=== PATIENT | male | born 1985 | race Caucasian/White ===

== ENCOUNTER 2017-01-20 05:08 | Observation (INO) | payer OTHER ==
[~2017-01-20] VITALS: Ht 167.6 cm; Wt 97.9 kg
[2017-01-20] MEDS ORDERED: SODIUM CHLORIDE 0.9% 1,000 ML IV ONE (05:31)
[2017-01-20] MEDS ORDERED: ONDANSETRON 2MG/ML, 2ML ONE (05:59)
[2017-01-20] MEDS ORDERED: ASPIRIN 81 MG TABLET CHEW ONE (05:59)
[2017-01-20] MEDS ORDERED: SODIUM CHLORIDE FLUSH 10ML SYR IVF ONE (06:00)
[2017-01-20] MEDS ORDERED: ASPIRIN 81 MG TABLET CHEW PO ONE (06:00)
[2017-01-20] MEDS ORDERED: SODIUM CHLORIDE 0.9% 1,000ML IVBOLUS ONE (06:00)
[2017-01-20] MEDS ORDERED: ONDANSETRON 2MG/ML, 2ML IVPush ONE (06:00)
[2017-01-20] MEDS ORDERED: NITROGLYCERIN SINGLE TAB 0.4 MG SL PRN (06:00)
[2017-01-20] MEDS ORDERED: LORazepam 2 MG/ML, 1ML IVPush ONE (06:00)
[2017-01-20] MEDS ORDERED: LORazepam 2 MG/ML, 1ML ONE (06:00)
[2017-01-20 06:12] LABS: HEMATOCRIT 52.3 % (39.2-51.8); HEMOGLOBIN 17.6 g/dL (13.7-18.0); WHITE BLOOD COUNT 11.5 x10^3/uL (3.4-10)
[2017-01-20 06:22] LABS: ASPARTATE AMINO TRANSFERASE 181 U/L (15-37); BLOOD UREA NITROGEN 25 mg/dL (7-18)
[2017-01-20 06:25] LABS: ACETAMINOPHEN < 2 mcg/mL (10-30)
[2017-01-20 06:26] LABS: IS PT STATUS REG ER OR PRE ER? YES
[2017-01-20 07:49] LABS: DAU SCREEN DISCLAIMER
[2017-01-20] MEDS ORDERED: SODIUM CHLORIDE FLUSH 10ML SYR IVF PRN (09:00)
[2017-01-20] MEDS ORDERED: BISACODYL 10 MG SUPP PR PRN (10:30)
[2017-01-20] MEDS ORDERED: ACETAMINOPHEN 325 MG TABLET PO PRN (10:30)
[2017-01-20] MEDS ORDERED: ONDANSETRON 2MG/ML, 2ML IVPush PRN (10:30)
[2017-01-20] MEDS ORDERED: hydrALAzine 20 MG/ML, 1ML IVPush PRN (10:30)
[2017-01-20] MEDS ORDERED: ONDANSETRON ODT 4 MG PO PRN (10:30)
[2017-01-20] MEDS ORDERED: POLYETHYLENE GLYCOL 17 GM PACKET PO PRN (10:30)
[2017-01-20] MEDS ORDERED: DOCUSATE 100 MG CAPSULE PO PRN (10:30)
[2017-01-20 10:58] LABS: IS PT STATUS REG ER OR PRE ER? YES
[2017-01-20 11:42] VITALS: BP 133/77
[2017-01-20] MEDS: ENOXAPARIN 40 MG/0.4 ML SQ SCH (12:54)
[2017-01-20] MEDS: NICOTINE 14MG/24 HR PATCH.TD24 TD SCH (12:54)
[2017-01-20] MEDS ORDERED: POTASSIUM CHLORIDE 20 MEQ, MAGNESIUM SULFATE 2 GM, THIAMINE 100 MG, MVI ADULT 10 ML in ... IV SCH (13:00)
[2017-01-20 13:49] VITALS: BP 113/61
[2017-01-20 16:24] LABS: IS PT STATUS REG ER OR PRE ER? NO
[2017-01-20 18:44] VITALS: BP 109/70
[2017-01-20] MEDS: FAMOTIDINE 20 MG TABLET PO SCH (20:06)
[2017-01-20] MEDS: ZOLPIDEM 5MG TABLET PO PRN (20:06)
[2017-01-21 00:31] VITALS: BP 112/71
[2017-01-21 06:09] LABS: HEMATOCRIT 43.3 % (39.2-51.8); HEMOGLOBIN 14.4 g/dL (13.7-18.0); WHITE BLOOD COUNT 4.9 x10^3/uL (3.4-10)
[2017-01-21 06:16] LABS: BLOOD UREA NITROGEN 15 mg/dL (7-18)
[2017-01-21 08:34] VITALS: BP 125/72
[2017-01-21] MEDS: FAMOTIDINE 20 MG TABLET PO SCH ×2 (08:46→20:30)
[2017-01-21] MEDS: NICOTINE 14MG/24 HR PATCH.TD24 TD SCH (12:33)
[2017-01-21] MEDS: ENOXAPARIN 40 MG/0.4 ML SQ SCH (12:36)
[2017-01-21 12:42] VITALS: BP 132/86
[2017-01-21] MEDS: POTASSIUM CHLORIDE 20 MEQ, MAGNESIUM SULFATE 2 GM, THIAMINE 100 MG, MVI ADULT 10 ML in ... IV SCH (13:57)
[2017-01-21 18:34] VITALS: BP 130/77
[2017-01-21] MEDS ORDERED: ONDANSETRON 2MG/ML, 2ML IVPush PRN (20:00)
[2017-01-21] MEDS ORDERED: DOCUSATE 100 MG CAPSULE PO PRN (20:00)
[2017-01-21] MEDS ORDERED: POLYETHYLENE GLYCOL 17 GM PACKET PO PRN (20:00)
[2017-01-21] MEDS ORDERED: hydrALAzine 20 MG/ML, 1ML IVPush PRN (20:00)
[2017-01-21] MEDS ORDERED: BISACODYL 10 MG SUPP PR PRN (20:00)
[2017-01-21] MEDS ORDERED: ONDANSETRON ODT 4 MG PO PRN (20:00)
[2017-01-21] MEDS ORDERED: ACETAMINOPHEN 325 MG TABLET PO PRN (20:00)
[2017-01-21] MEDS: ZOLPIDEM 5MG TABLET PO PRN (20:30)
[2017-01-22 01:05] VITALS: BP 103/64
[2017-01-22 05:45] LABS: BLOOD UREA NITROGEN 11 mg/dL (7-18)
[2017-01-22 06:45] VITALS: BP 119/72
[2017-01-22] MEDS: FAMOTIDINE 20 MG TABLET PO SCH ×2 (08:51→20:26)
[2017-01-22] MEDS: ENOXAPARIN 40 MG/0.4 ML SQ SCH (12:00)
[2017-01-22 12:36] VITALS: BP 111/69
[2017-01-22] MEDS: NICOTINE 14MG/24 HR PATCH.TD24 TD SCH (13:27)
[2017-01-22] MEDS: POTASSIUM CHLORIDE 20 MEQ, MAGNESIUM SULFATE 2 GM, THIAMINE 100 MG, MVI ADULT 10 ML in ... IV SCH ×2 (14:50→19:38)
[2017-01-22 19:15] VITALS: BP 126/75
[2017-01-22] MEDS: ZOLPIDEM 5MG TABLET PO PRN (20:26)
[2017-01-23 01:57] VITALS: BP 120/68
[2017-01-23 06:57] VITALS: BP 130/71
[2017-01-23] MEDS: FAMOTIDINE 20 MG TABLET PO SCH ×2 (08:34→20:30)
[2017-01-23] MEDS: POTASSIUM CHLORIDE 20 MEQ, MAGNESIUM SULFATE 2 GM, THIAMINE 100 MG, MVI ADULT 10 ML in ... IV SCH ×2 (10:18→19:11)
[2017-01-23] MEDS: NICOTINE 14MG/24 HR PATCH.TD24 TD SCH (11:29)
[2017-01-23] MEDS: ENOXAPARIN 40 MG/0.4 ML SQ SCH (11:29)
[2017-01-23 12:15] VITALS: BP 116/71
[2017-01-23 20:00] VITALS: BP 118/74
[2017-01-23] MEDS: ZOLPIDEM 5MG TABLET PO PRN (20:31)
[2017-01-24 02:00] VITALS: BP 127/71
[2017-01-24 06:35] VITALS: BP 130/70
[2017-01-24] MEDS: FAMOTIDINE 20 MG TABLET PO SCH ×2 (10:37→20:05)
[2017-01-24] MEDS: NICOTINE 14MG/24 HR PATCH.TD24 TD SCH (10:38)
[2017-01-24] MEDS: POTASSIUM CHLORIDE 20 MEQ, MAGNESIUM SULFATE 2 GM, THIAMINE 100 MG, MVI ADULT 10 ML in ... IV SCH (10:38)
[2017-01-24] MEDS: ENOXAPARIN 40 MG/0.4 ML SQ SCH (10:38)
[2017-01-24 12:35] VITALS: BP 148/86
[2017-01-24 17:15] VITALS: BP 143/74
[2017-01-24] MEDS: ZOLPIDEM 5MG TABLET PO PRN (20:05)
[2017-01-25 08:55] VITALS: BP 127/71
[2017-01-25] MEDS: FAMOTIDINE 20 MG TABLET PO SCH ×2 (09:02→19:43)
[2017-01-25] MEDS: ENOXAPARIN 40 MG/0.4 ML SQ SCH (12:00)
[2017-01-25] MEDS: NICOTINE 14MG/24 HR PATCH.TD24 TD SCH (12:49)
[2017-01-25 19:03] VITALS: BP 146/84
[2017-01-25] MEDS: ZOLPIDEM 5MG TABLET PO PRN (19:43)
[2017-01-26 07:43] VITALS: BP 116/70
[2017-01-26] MEDS: FAMOTIDINE 20 MG TABLET PO SCH (10:15)
[2017-01-26] MEDS: ENOXAPARIN 40 MG/0.4 ML SQ SCH (12:00)
[2017-01-26] MEDS: NICOTINE 14MG/24 HR PATCH.TD24 TD SCH (12:00)
== END 2017-01-26 13:00 | disposition home or self-care (01) ==
LOC: ED 05:48 → INTOOBSV 08:56 → EDIP 08:56 → 4EST 11:20 → 3E 01-24 16:40
PROVIDERS: ADMIT Hospitalist; ATTEND Hospitalist
DX: R07.89 Other chest pain (principal); R45.851 Suicidal ideations; F32.9 Major depressive disorder, single episode, unspecified; F10.10 Alcohol abuse, uncomplicated; F11.90 Opioid use, unspecified, uncomplicated; F15.229 Other stimulant dependence with intoxication, unspecified; F17.210 Nicotine dependence, cigarettes, uncomplicated; F41.0 Panic disorder [episodic paroxysmal anxiety]; K76.0 Fatty (change of) liver, not elsewhere classified; F41.9 Anxiety disorder, unspecified; R44.0 Auditory hallucinations; F41.1 Generalized anxiety disorder; I25.10 Atherosclerotic heart disease of native coronary artery without angina pectoris; Z82.49 Family history of ischemic heart disease and other diseases of the circulatory system
CPT/HCPCS: 36415; 71010; 76700; 80048; 80053; 80307; 80329; 81001; 83690; 84439; 84443; 84484; 85025; 93005; 96361; 96365; 96366; 96372; 96375; 99285; G0378; J1650; J2060; J2405; J3411; J3475; J3480; J7030; J7042; G0479; G0480